=== PATIENT | male | born 1990 ===

== ENCOUNTER 2016-11-28 19:48 | Emergency (ER) | payer SELFPAY ==
[2016-11-28 21:42] LABS: Basophils % (Auto) 0.7 % (0.0-1.8); Eosinophils % (Auto) 0.9 % (0.0-4.3); Hemoglobin 14.2 gm/dl (11.8-15.2); Mean Corpuscular HGB Conc 33 % (32-34); Mean Corpuscular Hemoglobin 28 pg (28-32); Mean Corpuscular Volume 86 fl (84-94); Platelet Count 244 K/mm3 (140-440); Red Blood Count 4.98 M/mm3 (3.65-5.03); Red Cell Distribution Width 14.4 % (13.2-15.2); White Blood Count 11.2 K/mm3 (4.5-11.0)
[2016-11-28 21:54] LABS: Alanine Aminotransferase 21 units/L (7-56); Albumin/Globulin Ratio 1.1 %; Alkaline Phosphatase 88 units/L (35-129); Anion Gap 18 mmol/L; Bilirubin,Total 0.4 mg/dL (0.1-1.2); Blood Urea Nitrogen 12 mg/dL (9-20); Calcium 8.9 mg/dL (8.4-10.2); Carbon Dioxide 25 mmol/L (22-30); Glucose 90 mg/dL (75-100); INR 1.12 (0.87-1.13); Lipase 11 units/L (13-60); Potassium 3.8 mmol/L (3.6-5.0); Sodium 138 mmol/L (137-145); Total Protein 7.5 g/dL (6.3-8.2)
[2016-11-28 21:55] LABS: Partial Thromboplastin Time 33.4 Sec. (24.2-36.6)
[2016-11-28 22:37] LABS: Bilirubin,Urine NEG (Negative); Blood,Urine NEG (Negative); Ketones,Urine NEG (Negative); Leukocyte Esterase,Urine MOD (Negative); Mucus,Urine FEW /HPF; Nitrite,Urine NEG (Negative); Protein,Urine <15 mg/dL mg/dL (Negative); Urobilinogen,Urine < 2.0 mg/dL (<2.0)
--- NOTE | 2016-11-28 23:38 | Emergency Department Report ---
HPI - General Chief Complaint: Headache Time Seen by Provider: 11/28/16 23:16 - HPI HPI: Patient is a 26-year-old male who presents to ED complaining of pressure type bilateral temporal and visual throbbing/18, intermittent type headache for the past 4 days.Patient states he has been having various throbbing pain for the past 4 days. He rates the pain 10/10 intensity and Patient states headache is sensitive to light. He states light makes it worse. Patient states being in a dark makes it a bit better. Patient denies fevers/ chills/nausea/vomiting/abdominal pain/dizziness/S of breath/blurred vision/chest pain ED Past Medical Hx - Past Medical History Previous Medical History?: Yes Additional medical history: Poor Historian. Migraines - Surgical History Past Surgical History?: No - Social History Smoking Status: Never Smoker Substance Use Type: None - Medications Home Medications: Home Medications Medication Instructions Recorded Confirmed Last Taken Type Carbamide Peroxide 6.5% [Ear Wax 1 - 2 drops OT PRN PRN #1 bottle 11/29/16 Unknown Rx Drops] Ibuprofen [Motrin] 800 mg PO Q8HR PRN #30 tablet 11/29/16 Unknown Rx ED Review of Systems ROS: Stated complaint: EMESIS Other details as noted in HPI Constitutional: denies: chills, fever Eyes: denies: eye pain, eye discharge, vision change ENT: denies: ear pain, throat pain, dental pain, hearing loss Respiratory: denies: cough, shortness of breath, wheezing Cardiovascular: denies: chest pain, palpitations Endocrine: no symptoms reported Gastrointestinal: denies: abdominal pain, nausea, vomiting, diarrhea, constipation Genitourinary: denies: urgency, dysuria, frequency, hematuria Musculoskeletal: denies: back pain, joint swelling, arthralgia Skin: denies: rash, lesions Neurological: headache. denies: weakness, numbness, paresthesias, confusion, abnormal gait Psychiatric: denies: anxiety, depression, homicidal thoughts Hematological/Lymphatic: denies: easy bleeding, easy bruising Physical Exam - Physical Exam Vital Signs: Vital Signs 11/28/16 20:10 Temperature 98.5 F Pulse Rate 100 H Respiratory 20 Rate Blood Pressure 156/108 [Right] O2 Sat by Pulse 100 Oximetry Physical Exam: GENERAL: Alert and oriented x3, no apparent distress, Normal Gait, atraumatic. HEAD: Head is normocephalic and a-traumatic. EYES: Extra ocular muscles are intact. Pupils are equal, round, and reactive to light and accommodation. EARS: symetrical, atraumatic, non tender, ear canal filled with brown moderate cerumen impaction bilaterally, tympanic membrance not visualized bilaterally. gross auditory nml bilaterally. NOSE: Nose symetrical, Nontender,Nares appeared normal. MOUTH:Mouth is well hydrated and without lesions. Tonsils nonerythematous or swollen, Uvula midline, Tongue not elevated. Mucous membranes are moist. Posterior pharynx clear, no exudate or lesions. Patent airways. NECK: Supple. Non edematous, No carotid bruits. No lymphadenopathy or thyromegaly. LUNGS: Symetrical with respiration, No wheezing, no rales or crackles, CTAB. HEART: S1, S2 present, regular rate and rhythm without murmur, no rubs, no gallops. ABDOMEN: No organomegaly was noted,Positive bowel sounds, soft, and non- distended. . Nontender to palpation on all Quadrants, NO CVA tenderness. NEUROLOGIC: No focal Deficit, Cranial nerves II through XII are grossly intact. No loss of sensation, patient able to follow instructions given. PSYCHIATRIC: Mood is congruent with affect, denies suicidal or homicidal ideations. SKIN: Warm and dry, No lesions, No ulceration or induration present. ED Course Vital Signs 11/28/16 20:10 Temperature 98.5 F Pulse Rate 100 H Respiratory 20 Rate Blood Pressure 156/108 [Right] O2 Sat by Pulse 100 Oximetry ED Medical Decision Making - Lab Data Result diagrams: 11/28/16 21:09 11/28/16 21:09 - EKG Data Interpretation: other - Radiology Data Radiology results: report reviewed, image reviewed INAL REPORT PROCEDURE: CT HEAD/BRAIN WO CON TECHNIQUE: Computerized tomography of the head was performed without contrast material. HISTORY: headache 06/03 COMPARISON: No prior studies are available for comparison. FINDINGS: Skull and scalp: Normal. Paranasal sinuses: Normal. Ventricles and subarachnoid spaces: Normal. Cerebrum: No evidence of hemorrhage, acute infarction or mass . Cerebellum and brainstem: No evidence of hemorrhage, acute infarction or mass. Vasculature: Normal. Comments: None. IMPRESSION: Normal Examination Transcribed By: [facility] Dictated By: FRANCIS DELUCA MD Electronically Authenticated By: FRANCIS DELUCA MD Signed Date/Time: 11/29/16 0147 - Medical Decision Making 26-year-old male presents with ear impaction, pressure headache ED course: Patient received 2 tablets Tylenol./codeine CT of the head ordered. CT of head shows normal results normal acute injury. Bilateral ear irrigated with 35 mL of water in peroxide solution. All of the wax was removed. Pt tolerated procedure well. Ear exam after irrigation shows clear ear canal tympanic membrane visualized bilaterally, not bulging and not ruptured. After Ear irriogation patient states she does feel much better. Discussed the patient to follow up with primary care physician. Discussed take medication as needed for headache pain. Discuss if worsening symptoms return to ED. Vital signs are normal patient is in no acute or respiratory distress. Critical care attestation.: If time is entered above; I have spent that time in minutes in the direct care of this critically ill patient, excluding procedure time. ED Disposition Clinical Impression: Impacted cerumen of both ears Headache, acute Qualifiers: Headache type: tension-type Intractability: not intractable Qualified Code(s): G44.209 - Tension-type headache, unspecified, not intractable Disposition: DISCHARGED TO HOME OR SELFCARE Is pt being admited?: No Does the pt Need Aspirin: No Condition: Stable Instructions: Acute Headache (ED), Cerumen Impaction (ED) Prescriptions: Carbamide Peroxide 6.5% [Ear Wax Drops] 1 - 2 drops OT PRN PRN #1 bottle PRN Reason: Ear Wax Ibuprofen [Motrin] 800 mg PO Q8HR PRN #30 tablet PRN Reason: Pain Referrals: PRIMARY MD HOLLIE [Primary Care Provider] - 3-[address] MD [Referring] - 3-5 Days CHARLA PATEL MD [Staff Physician] - 3-[address] [facility] [Outside] - 3-5 Days YANIRA Moore [facility] [Outside] - 3-5 Days Forms: Accompanied Note, Work/School Release Form(ED) Time of Disposition: 02:20
[2016-11-28] MEDS ORDERED: XYLOCAINE TOPICAL 2% TP ONE (23:39)
[2016-11-28] MEDS ORDERED: EAR WAX DROPS AU ONE (23:41)
[2016-11-28] MEDS ORDERED: HYDROGEN PEROXIDE ONE (23:48)
[2016-11-29] MEDS ORDERED: TYLENOL #3 PO ONE (00:41)
--- NOTE | 2016-11-29 02:00 | Cat Scan Report ---
FINAL REPORT PROCEDURE: CT HEAD/BRAIN WO CON TECHNIQUE: Computerized tomography of the head was performed without contrast material. HISTORY: headache 06/03 COMPARISON: No prior studies are available for comparison. FINDINGS: Skull and scalp: Normal. Paranasal sinuses: Normal. Ventricles and subarachnoid spaces: Normal. Cerebrum: No evidence of hemorrhage, acute infarction or mass . Cerebellum and brainstem: No evidence of hemorrhage, acute infarction or mass. Vasculature: Normal. Comments: None. IMPRESSION: Normal Examination
[2016-11-29 02:36] VITALS: BP 156/99
== END 2016-11-29 02:36 | disposition home or self-care (01) ==
LOC: ED 19:48
DX: H61.23 Impacted cerumen, bilateral (principal)
CPT/HCPCS: 36415; 70450; 80053; 81001; 83690; 84484; 85025; 85610; 85730; 93005; 93010; 99284